=== PATIENT | female | born 1985 | race Caucasian/White ===

== ENCOUNTER → 2018-06-29 | Outpatient (REF) | payer OTHER ==
[2018-07-06 14:14] LABS: HPV HYBRID CAPTURE II Negative (Negative)
== END ==
LOC: M LAB REF 16:59
PROVIDERS: ATTEND Advanced Practice Midwife
DX: Z12.4 Encounter for screening for malignant neoplasm of cervix (principal)

== ENCOUNTER → 2018-08-03 | Outpatient (CLI) | payer BC, OTHER ==
--- NOTE | 2018-08-03 15:34 | REPMRS ---
Patient History The patient states she had a clinical breast exam in 2017. Patient is nulliparous. Family history of breast cancer at age 58 in mother, breast cancer at age 60 in paternal grandmother. Out of town priors being down loaded-from [place] Left breast bx-2 sites w/benign results Digital Mammo Screening Bilat: August 03, 2018 - Exam #: [id number] Bilateral CC and MLO view(s) were taken. Technologist: Jade Long, Technologist Prior study comparison: June 18, 2016, left breast diagnostic unilateral mammo, performed at [facility]. FINDINGS: The breast tissue is heterogeneously dense. This may lower the sensitivity of mammography. There are two needle biopsy marker clips projecting in the the upper outer quadrant of the left breast. There is a moderate amount of heterogeneously dense fibroglandular tissue which is fairly symmetric. There is no interval development of dominant mass, architectural distortion, or clustered microcalcification typical of malignancy. There has been no change in the appearance of the mammogram from the prior studies. 3-D tomosynthesis shows no additional findings. Assessment: BI-RADS/ACR category 2 mammogram. Benign Findings. Recommendation Breast MRI of both breasts in 6 months. Routine screening mammogram of both breasts in 1 year (for women over age 40). This patient's Lifetime Breast Cancer RIsk is estimated at 31.7 %. Annual screening Breast MRI scanniing is recommended for patient's whose lifetime risk assessment is over 20%. This mammogram was interpreted with the aid of an FDA-approved computer-aided dectection system. Electronically Signed By: Molina Jones MD 08/03/18 [id number]
== END ==
LOC: M RAD 11:44
PROVIDERS: ATTEND Advanced Practice Midwife
DX: Z12.31 Encounter for screening mammogram for malignant neoplasm of breast (principal); Z86.018 Personal history of other benign neoplasm; Z80.3 Family history of malignant neoplasm of breast

== ENCOUNTER → 2020-01-03 | Outpatient (REF) | payer BC ==
[2020-01-03 20:11] LABS: CHLAMYDIA DNA AMPLIFICATION NEGATIVE (NEGATIVE); GC DNA AMPLIFICATION NEGATIVE (NEGATIVE)
== END ==
LOC: M SFHCWAGY 16:53
PROVIDERS: ATTEND Advanced Practice Midwife
DX: Z01.419 Encounter for gynecological examination (general) (routine) without abnormal findings (principal); Z11.3 Encounter for screening for infections with a predominantly sexual mode of transmission